=== PATIENT | female | born 1980 | race Hispanic/Latino ===

== ENCOUNTER 2019-11-09 07:34 | Outpatient (CLI) | payer OTHER ==
--- NOTE | 2019-11-09 09:42 | CT ---
CT ABDOMEN AND PELVIS WITH ORAL AND IV CONTRAST: Date: 11/09/2019 HISTORY: 39-year-old female with anemia, constipation. Doctor felt a mass around the umbilical area during the exam. The patient does not feel a mass. FINDINGS: There are no previous exams for comparison. The lung bases are clear. The liver, spleen, pancreas, adrenal glands, and kidneys are normal. No calcified gallstones are seen . No free air, free fluid, or lymphadenopathy seen in the abdomen or pelvis. The small bowel loops ar e not abnormally dilated. An abnormal appendix is not seen. Uterus and ovaries are present. The aorta is of normal caliber. There is a small, fat-containing left paramedian ventral abdominal wall hernia in the lower anterior abdominal wall. IMPRESSION: Small, fat-containing left paramedian lower anterior abdominal wall hernia. POS: [facility]
[2019-11-09] MEDS ORDERED: Iopamidol-370 76% 500 ML 1 ML ONE (13:31)
== END 2019-11-09 07:35 | disposition home or self-care (01) ==
LOC: BICCT 07:34
PROVIDERS: ATTEND Internal Medicine
DX: D46.9 Myelodysplastic syndrome, unspecified (principal); K59.09 Other constipation; R19.05 Periumbilic swelling, mass or lump; K43.9 Ventral hernia without obstruction or gangrene
CPT/HCPCS: 74177; Q9967

== ENCOUNTER 2021-09-24 10:49 | Outpatient (CLI) | payer OTHER | END 2021-09-24 10:50 | disposition home or self-care (01) | LOC: BICMAMMO 10:49 | PROVIDERS: ATTEND Physician Assistant Medical | DX: Z12.31 Encounter for screening mammogram for malignant neoplasm of breast (principal) | CPT/HCPCS: 77063; 77067 ==

== ENCOUNTER 2024-11-28 11:05 | Outpatient (CLI) | payer OTHER | END 2024-11-28 11:06 | disposition home or self-care (01) | LOC: BICMAMMO 11:05 | PROVIDERS: ATTEND Nurse Practitioner Family | DX: Z12.31 Encounter for screening mammogram for malignant neoplasm of breast (principal) | CPT/HCPCS: 77063; 77067 ==